=== PATIENT | female | born 1985 | race Two or more races ===

== ENCOUNTER 2021-05-30 14:31 | Outpatient (CLI) | payer OTHER | END 2021-05-30 14:39 | disposition home or self-care (01) | LOC: LAB 14:31 | DX: N92.5 Other specified irregular menstruation (principal) ==

== ENCOUNTER 2021-08-20 07:27 | Outpatient (CLI) | payer OTHER | END 2021-08-20 07:28 | disposition home or self-care (01) | LOC: RX STUDY 07:27 | DX: N84.0 Polyp of corpus uteri (principal); N73.6 Female pelvic peritoneal adhesions (postinfective); N89.6 Tight hymenal ring ==

== ENCOUNTER 2021-12-02 13:19 | Outpatient (CLI) | payer OTHER | END 2021-12-02 13:44 | disposition home or self-care (01) | LOC: RAD 13:19 | PROVIDERS: ATTEND Obstetrics & Gynecology | DX: R06.02 Shortness of breath (principal) ==

== ENCOUNTER 2021-12-11 11:31 | Day surgery (SDC) | payer OTHER ==
[2021-12-11] MEDS ORDERED: KETO10TA2 PO (18:40)
== END 2021-12-11 21:50 | disposition home or self-care (01) ==
LOC: CIR.AMB 11:31
PROVIDERS: ATTEND Obstetrics & Gynecology
DX: D25.0 Submucous leiomyoma of uterus (principal); D25.2 Subserosal leiomyoma of uterus; N72 Inflammatory disease of cervix uteri; N83.8 Other noninflammatory disorders of ovary, fallopian tube and broad ligament; N84.0 Polyp of corpus uteri; F12.90 Cannabis use, unspecified, uncomplicated

== ENCOUNTER 2022-08-28 15:31 | Outpatient (CLI) | payer OTHER ==
[~2022-08-28 15:31] MED LIST: KETO10TA2 PO
[2022-08-28] MEDS ORDERED: PRENATAL TABLE1 EAC1 (19:10)
== END 2022-08-28 17:13 | disposition home or self-care (01) ==
LOC: PRENATAL 15:31
PROVIDERS: ATTEND Obstetrics & Gynecology Maternal & Fetal Medicine
DX: O35.9XX0 Maternal care for (suspected) fetal abnormality and damage, unspecified, not applicable or unspecified (principal); O35.3XX0 Maternal care for (suspected) damage to fetus from viral disease in mother, not applicable or unspecified; O26.879 Cervical shortening, unspecified trimester; O34.10 Maternal care for benign tumor of corpus uteri, unspecified trimester; Z3A.21 21 weeks gestation of pregnancy

== ENCOUNTER 2022-08-28 18:32 | Inpatient (IN) | payer OTHER ==
[~2022-08-28] VITALS: Ht 152.4 cm; Wt 0.5 kg
[2022-08-28] MEDS ORDERED: PRENATAL TABLE1 EAC1 (19:10)
[2022-09-15] MEDS ORDERED: NAPR500T14 PO (09:18)
[2022-09-15] MEDS ORDERED: Tylenol #3 PO (09:18)
== END 2022-09-15 17:58 | disposition home or self-care (01) | DRG 786 ==
LOC: OB/GYN 18:32 → LDR 18:32 → OB/GYN 08-29 11:13
PROVIDERS: ADMIT Obstetrics & Gynecology; ATTEND Obstetrics & Gynecology
PROC: 4A1HXCZ Monitoring of Products of Conception, Cardiac Rate, External Approach (ICD-10-PCS; 2022-08-28)
PROC: 10D00Z1 Extraction of Products of Conception, Low, Open Approach (ICD-10-PCS; principal; 2022-09-11 20:15)
DX: O32.1XX0 Maternal care for breech presentation, not applicable or unspecified (principal); O34.32 Maternal care for cervical incompetence, second trimester; O60.12X0 Preterm labor second trimester with preterm delivery second trimester, not applicable or unspecified; O41.1220 Chorioamnionitis, second trimester, not applicable or unspecified; Z3A.23 23 weeks gestation of pregnancy; Z20.822 Contact with and (suspected) exposure to COVID-19